=== PATIENT | female | born 1965 | race Caucasian/White ===

== ENCOUNTER 2016-12-13 14:01 | Emergency (ER) | payer MEDICAID ==
[~2016-12-13 14:01] MED LIST: GLUCOTROL5 MG PO; MECLIZINE12.5 M1 PO; METFORMIN HCL1000 MG PO; MOTRIN800 MG PO; NEU300 PO; ZOF4 PO
[2016-12-13 14:11] VITALS: BP 127/77
== END 2016-12-13 15:12 | disposition home or self-care (01) ==
LOC: ED 14:01
DX: L60.0 Ingrowing nail (principal); E11.9 Type 2 diabetes mellitus without complications; M19.90 Unspecified osteoarthritis, unspecified site; E78.00 Pure hypercholesterolemia, unspecified
CPT/HCPCS: J2001

== ENCOUNTER 2016-12-15 15:28 | Emergency (ER) | payer MEDICAID ==
[2016-12-15 16:06] VITALS: BP 148/91
== END 2016-12-15 16:06 | disposition home or self-care (01) ==
LOC: ED 15:28
DX: Z48.01 Encounter for change or removal of surgical wound dressing (principal); I10 Essential (primary) hypertension; E11.9 Type 2 diabetes mellitus without complications; E78.00 Pure hypercholesterolemia, unspecified; M19.90 Unspecified osteoarthritis, unspecified site; Z79.2 Long term (current) use of antibiotics; Z90.49 Acquired absence of other specified parts of digestive tract

== ENCOUNTER 2017-07-25 10:38 | Emergency (ER) | payer MEDICAID ==
[~2017-07-25] VITALS: Ht 157.5 cm; Wt 68.0 kg
[2017-07-25 11:00] VITALS: Ht 157.5 cm; Wt 68.0 kg
[2017-07-25 11:33] LABS: BASOPHIL % 1.4 % (0-2); PLATELET COUNT 238 x10^3mcL (130-400)
[2017-07-25 11:41] LABS: CALCIUM 8.8 mg/dL (8.5-10.1); CARBON DIOXIDE 31.3 mmol/L (21-32); CHLORIDE SERUM 95 mmol/L (98-107); CREATININE SERUM 0.4 mg/dL (0.6-1.0); GFR1 > 60 mL/min; GLUCOSE SERUM 260 mg/dL (74-106); SODIUM SERUM 132 mmol/L (136-145)
[2017-07-25 11:47] LABS: ALKALINE PHOSPHATASE 72 U/L (46-116); ALT/SGPT 23 U/L (14-59); AMYLASE 73 U/L (25-115); AST/SGOT 13 U/L (15-37); BILIRUBIN TOTAL 0.35 mg/dL (0.20-1.00); LIPASE 265 IU/L (73-393); TOTAL PROTEIN, SERUM 7.4 g/dL (6.4-8.2)
[2017-07-25 13:32] VITALS: BP 128/58
== END 2017-07-25 13:32 | disposition home or self-care (01) ==
LOC: ED 10:38
PROVIDERS: Emergency Medicine
DX: R10.31 Right lower quadrant pain (principal); R11.0 Nausea; E78.00 Pure hypercholesterolemia, unspecified; I10 Essential (primary) hypertension; E11.9 Type 2 diabetes mellitus without complications; M19.90 Unspecified osteoarthritis, unspecified site; Z90.49 Acquired absence of other specified parts of digestive tract
CPT/HCPCS: J1885; J2405

== ENCOUNTER 2017-10-05 12:54 | Emergency (ER) | payer MEDICAID ==
[~2017-10-05] VITALS: Ht 154.9 cm; Wt 72.6 kg
[2017-10-05 13:09] VITALS: Ht 154.9 cm; Wt 72.6 kg
[2017-10-05 16:08] VITALS: BP 147/90
== END 2017-10-05 16:02 | disposition home or self-care (01) ==
LOC: ED 12:54
DX: R10.30 Lower abdominal pain, unspecified (principal); M79.1 Myalgia; R19.7 Diarrhea, unspecified; I10 Essential (primary) hypertension; Z90.49 Acquired absence of other specified parts of digestive tract
CPT/HCPCS: J1885; J7030

== ENCOUNTER 2018-08-06 12:11 | Emergency (ER) | payer BC ==
[~2018-08-06] VITALS: Ht 154.9 cm; Wt 60.8 kg
[~2018-08-06 12:11] MED LIST changes: +GLIPIZIDE10 M2 PO; +ZESTRIL5 MG PO
[2018-08-06 12:16] VITALS: Ht 154.9 cm; Wt 60.8 kg
[2018-08-06 13:10] LABS: BASOPHIL % 0.5 % (0-2); PLATELET COUNT 281 x10^3mcL (130-400); RED CELL DISTRIBUTION WIDTH 13.8 % (11.5-14.5)
[2018-08-06 13:21] LABS: CALCIUM 9.5 mg/dL (8.5-10.1); CARBON DIOXIDE 30.1 mmol/L (21-32); CHLORIDE SERUM 97 mmol/L (98-107); CREATININE SERUM 0.6 mg/dL (0.6-1.0); GFR1 > 60 mL/min; GLUCOSE SERUM 231 mg/dL (74-106); POTASSIUM SERUM 3.5 mmol/L (3.5-5.1); SODIUM SERUM 137 mmol/L (136-145)
[2018-08-06 13:25] LABS: ALKALINE PHOSPHATASE 97 U/L (46-116); ALT/SGPT 26 U/L (14-59); AST/SGOT 13 U/L (15-37); BILIRUBIN TOTAL 0.37 mg/dL (0.20-1.00); LIPASE 153 IU/L (73-393)
[2018-08-06 13:29] LABS: ALBUMIN 3.1 g/dL (3.4-5.0); TOTAL PROTEIN, SERUM 8.3 g/dL (6.4-8.2)
[2018-08-06 14:03] LABS: T4(THYROXINE) 9.6 ug/dL (4.7-13.3)
[2018-08-06 16:58] LABS: UA SPECIFIC GRAVITY <=1.005 (1.005-1.035)
[2018-08-06 16:59] LABS: microscopic required? YES; urine erythrocyte TRACE (NEGATIVE)
[2018-08-06 21:47] VITALS: BP 94/55
== END 2018-08-06 21:47 | disposition home or self-care (01) ==
LOC: ED 12:11
PROVIDERS: Emergency Medicine
DX: K59.00 Constipation, unspecified (principal); E46 Unspecified protein-calorie malnutrition; I10 Essential (primary) hypertension; E78.00 Pure hypercholesterolemia, unspecified; M06.9 Rheumatoid arthritis, unspecified; E11.9 Type 2 diabetes mellitus without complications; Z90.49 Acquired absence of other specified parts of digestive tract; Z98.890 Other specified postprocedural states
CPT/HCPCS: J1885; J7030; Q9967

== ENCOUNTER 2018-10-23 18:13 | Emergency (ER) | payer BC ==
[~2018-10-23] VITALS: Ht 160 cm; Wt 68.0 kg
[2018-10-23 18:25] VITALS: Ht 160 cm; Wt 68.0 kg
[2018-10-23 19:12] LABS: BASOPHIL % 0.5 % (0-2); PLATELET COUNT 298 x10^3mcL (130-400); RED CELL DISTRIBUTION WIDTH 14.4 % (11.5-14.5)
[2018-10-23 19:13] LABS: UA SPECIFIC GRAVITY <=1.005 (1.005-1.035); microscopic required? YES; urine erythrocyte TRACE (NEGATIVE)
[2018-10-23 19:19] LABS: CALCIUM 9.1 mg/dL (8.5-10.1); CARBON DIOXIDE 27.9 mmol/L (21-32); CHLORIDE SERUM 100 mmol/L (98-107); CREATININE SERUM 0.5 mg/dL (0.6-1.0); GFR1 > 60 mL/min; GLUCOSE SERUM 308 mg/dL (74-106); POTASSIUM SERUM 4.1 mmol/L (3.5-5.1); SODIUM SERUM 137 mmol/L (136-145)
[2018-10-23 19:31] LABS: ALKALINE PHOSPHATASE 84 U/L (46-116); ALT/SGPT 8 U/L (14-59); AST/SGOT 7 U/L (15-37); BILIRUBIN TOTAL 0.21 mg/dL (0.20-1.00); LIPASE 168 IU/L (73-393); TOTAL PROTEIN, SERUM 8.2 g/dL (6.4-8.2)
[2018-10-23 19:32] LABS: ALBUMIN 3.1 g/dL (3.4-5.0)
[2018-10-23 21:09] VITALS: BP 130/65
== END 2018-10-23 21:09 | disposition home or self-care (01) ==
LOC: ED 18:13
PROVIDERS: Emergency Medicine
DX: K29.70 Gastritis, unspecified, without bleeding (principal); E11.65 Type 2 diabetes mellitus with hyperglycemia; M46.1 Sacroiliitis, not elsewhere classified; I10 Essential (primary) hypertension; E78.00 Pure hypercholesterolemia, unspecified; M06.9 Rheumatoid arthritis, unspecified; Z90.49 Acquired absence of other specified parts of digestive tract; Z98.890 Other specified postprocedural states
CPT/HCPCS: 82962; J2270; J2405; J3490; J7030

== ENCOUNTER 2018-11-26 12:27 | Emergency (ER) | payer BC ==
[~2018-11-26] VITALS: Ht 160 cm; Wt 57.6 kg
[2018-11-26 12:44] VITALS: Ht 160 cm; Wt 57.6 kg
[2018-11-26 15:01] LABS: CALCIUM 8.9 mg/dL (8.5-10.1); CHLORIDE SERUM 97 mmol/L (98-107); CREATININE SERUM 0.5 mg/dL (0.6-1.0); GFR1 > 60 mL/min; GLUCOSE SERUM 191 mg/dL (74-106); POTASSIUM SERUM 3.6 mmol/L (3.5-5.1); SODIUM SERUM 137 mmol/L (136-145)
[2018-11-26 15:05] LABS: ALBUMIN 3.4 g/dL (3.4-5.0); ALKALINE PHOSPHATASE 76 U/L (46-116); ALT/SGPT 24 U/L (14-59); AST/SGOT 15 U/L (15-37); BILIRUBIN TOTAL 0.3 mg/dL (0.20-1.00); LIPASE 155 IU/L (73-393)
[2018-11-26 15:06] LABS: TOTAL PROTEIN, SERUM 8.4 g/dL (6.4-8.2)
[2018-11-26 15:07] LABS: BASOPHIL % 0.5 % (0-2); PLATELET COUNT 284 x10^3mcL (130-400)
[2018-11-26 15:17] LABS: RED CELL DISTRIBUTION WIDTH 14.9 % (11.5-14.5)
[2018-11-26 18:45] VITALS: BP 159/81
== END 2018-11-26 18:45 | disposition home or self-care (01) ==
LOC: ED 12:27
PROVIDERS: Emergency Medicine
DX: M13.88 Other specified arthritis, other site (principal); I82.890 Acute embolism and thrombosis of other specified veins; I82.4Y1 Acute embolism and thrombosis of unspecified deep veins of right proximal lower extremity; L91.8 Other hypertrophic disorders of the skin; H61.21 Impacted cerumen, right ear; I10 Essential (primary) hypertension; E11.9 Type 2 diabetes mellitus without complications; E78.00 Pure hypercholesterolemia, unspecified; M06.9 Rheumatoid arthritis, unspecified; Z90.49 Acquired absence of other specified parts of digestive tract
CPT/HCPCS: J2001; J2405; J3010; J7030

== ENCOUNTER 2018-12-09 11:24 | Emergency (ER) | payer BC ==
[~2018-12-09] VITALS: Ht 152.4 cm; Wt 68.0 kg
[2018-12-09 11:25] VITALS: Ht 152.4 cm; Wt 68.0 kg
[2018-12-09 15:41] VITALS: BP 138/82
== END 2018-12-09 15:41 | disposition home or self-care (01) ==
LOC: ED 11:24
DX: M19.90 Unspecified osteoarthritis, unspecified site (principal); I10 Essential (primary) hypertension; E11.9 Type 2 diabetes mellitus without complications; E78.00 Pure hypercholesterolemia, unspecified; Z90.49 Acquired absence of other specified parts of digestive tract; Z90.89 Acquired absence of other organs
CPT/HCPCS: J1885

== ENCOUNTER 2019-01-23 18:30 | Emergency (ER) | payer BC ==
[~2019-01-23] VITALS: Ht 157.5 cm; Wt 58.1 kg
[2019-01-23 18:45] VITALS: Ht 157.5 cm; Wt 58.1 kg
[2019-01-23 23:44] VITALS: BP 115/72
== END 2019-01-23 23:44 | disposition home or self-care (01) ==
LOC: ED 18:30
DX: S39.012A Strain of muscle, fascia and tendon of lower back, initial encounter (principal); M54.41 Lumbago with sciatica, right side; E78.00 Pure hypercholesterolemia, unspecified; M06.9 Rheumatoid arthritis, unspecified; Z90.89 Acquired absence of other organs; Z90.49 Acquired absence of other specified parts of digestive tract; X58.XXXA Exposure to other specified factors, initial encounter; Y93.89 Activity, other specified; Y92.89 Other specified places as the place of occurrence of the external cause; Y99.8 Other external cause status
CPT/HCPCS: J1885